=== PATIENT | male | born 1965 | race Caucasian/White ===

== ENCOUNTER 2021-12-20 11:53 | Outpatient (CLI) | payer OTHER, SELFPAY | END 2021-12-20 11:54 | disposition home or self-care (01) | LOC: ANHAUDIO 11:54 | PROVIDERS: PCP Family Medicine Sports Medicine; Visit Provider Family Medicine Sports Medicine | DX: Z01.10 Encounter for examination of ears and hearing without abnormal findings (principal) | CPT/HCPCS: 92557; 92567 ==